=== PATIENT | female | born 1970 | race Hispanic/Latino ===

== ENCOUNTER 2017-02-21 18:17 | Emergency (ER) | payer OTHER ==
[~2017-02-21] VITALS: Ht 162.6 cm; Wt 68.2 kg
[2017-02-21 18:23] VITALS: BP 154/71; PULSE 90; O2SAT 100
[2017-02-21 18:30] VITALS: BP 154/71; PULSE 90; RESP 16; O2SAT 100
--- NOTE | 2017-02-21 21:23 | ED.REPORT ---
HPI-General Illness Date of Service Feb 21, 2017 ED Provider: Home Moya MD Pt is a 46 year old American speaking female who presents to the with complaints of rectal pain that started 3 days ago. She reports that she can feel lumps around her rectum, she has never had this occur in the past. She denies any trauma or injuries. She denies any fevers, nausea, vomiting, shortness of breath or cough. She admits to hot sweats secondary to menopause. Pt reports that she has not taken any thing for the pain. She denies any constipation. Nursing Notes Stated Complaint: BACK PAIN Chief Complaint: General Complaint Nursing Notes Reviewed: Yes (Swipesense, medications not reconciled) Allergies: Coded Allergies: No Known Allergies (Verified , 02/21/07) Scheduled PRN Docusate Sodium (Colace) 100 Mg Capsule 200 MG PO DAILY PRN PRN For Constipation Phenyleph/Mineral Oil/Petrolat (Preparation H Oint) 28 Gm Oint.appl 1 APPLIC RECTAL BID PRN PRN hemorrhoid Phenylephrine/[place] Butter (Preparation H Supp) 1 Each Supp.rect 1 SUPP RECTAL DAILY PRN PRN hemorrhoid General Time Seen by MD: 20:51 Chief Complaint Other (Rectal pain) Hx Obtained From: Patient, Supervisor [employer] Arrived By: Walk-in Sudden in Onset?: Yes Onset Occurred: 4 days ago Severity: Current: Moderate Severity: Maximum: Moderate Similar Sx Previous: Yes Past Medical History Past Medical History Healthy Ambulatory Status Independent Review of Systems Full Review of Systems Constitutional: Denies: Chills, Fever, Malaise, Weakness - generalized Cardiovascular: Denies: Chest pain, Syncope GI: Denies: Abdominal pain, Diarrhea, Nausea, Vomiting Musculoskeletal: Denies: Back pain, Neck pain Skin: Denies Diaphoresis Neurologic: Denies: Change LOC, Dizziness, Headache Complete sys rev & neg: except as marked. Physical Exam Vital Signs Vital Signs Date Time Temp Pulse Resp B/P Pulse Ox O2 Delivery O2 Flow Rate FiO2 02/21/17 21:32 36.1 85 20 151/72 99 Room Air 02/21/17 18:30 36.4 90 16 154/71 100 Room Air Initial VS: Reviewed, Vital signs normal General/Constitutional: Well-developed, Well-nourished Head / Eyes: Atraumatic, Normocephalic, PERRL ENT: Mucous membranes moist, Conjunctiva normal, No scleral icterus Neck: Supple, Non-tender, Full range of motion Respiratory: Breath sounds normal, Clear to auscultation, No respiratory distress Cardiovascular: Regular rate & rhythm, Heart sounds normal, Intact distal pulses Abdomen / GI: Soft, Non-tender, No guarding, No rebound, No distention Skin: Warm, Dry, No cyanosis Neurologic: Alert, Oriented, Nonfocal Rectum / Perineum Abnl: Positive: Hemorrhoid external Small, non thrombosed herorrhoid No perirectal abscess Re-Eval/Medical Decision Source of Hx: Old records Time of Eval: 21:27 Re-Evaluation/Progress Note: Pt is rechecked and informed of her diagnosis and the plan to discharge her at this time. She understands and agrees, all questions are addressed. Counseled Regarding: Diagnosis, Lab results, When/why to return to ED Discharge & Departure Primary Impression: Acute hemorrhoid Disposition: Home Discharge Condition All VS Reviewed: Yes Condition: Stable Additional Instructions: 1. Your exam indicates that he will have a hemorrhoid causing her discomfort. 2. Use a preparation H suppository once a day for the next several days to help resolve. You can also use preparation ointment to help with pain and discomfort. 3. take the stool softener colace 100-200mg daily to prevent constipation. 4. If needed for pain take hydrocodone/APAP 5/325 1 tab up to every 6 hours. Note this medication contains narcotic and cause some drowsiness. No driving for at least 4-6 hours after taking 5. Follow up with [facility] as needed. 1. Dong examen indica que tendr maryam hemorroide causando dong malestar. 2. Use un supositorio de preparacin H maryam vez al da dom los prximos penn para ayudar a resolver. Jose G puede utilizar un ungento de preparacin para ayudar con el dolor y la incomodidad. 3. tome el colatid 100-200mg del suavizador de las heces diariamente para prevenir el estreimiento. 4. Si es necesario para el dolor tome hydrocodone / APAP 5/325 1 lengeta hasta cada 6 horas. Tenga en cuenta que zack medicamento contiene estupefacientes y causar cierta somnolencia. No conducir por lo menos 4-6 horas despus de jayme 5. Seguir con [facility] segn sea necesario. Referrals: [facility] (PCP) Scribe Attestation Portions of this note were transcribed by Alejandra Maldonado.. I, Dr. Moya personally performed the history, physical exam and medical decision-making; I reviewed and confirmed the accuracy of the information in the transcribed note. Signed by:Alin Buckley, 02/21/2017 21:28 copies to: [facility] Matthew F MD Feb 21, 2017 21:23 CIARAN MALDONADO Feb 21, 2017 21:26
[2017-02-21] MEDS ORDERED: _HYDROcodone/APAP 5-325 mg Tablet PO PRN (21:25)
[2017-02-21 21:32] VITALS: BP 151/72; PULSE 85; RESP 20; O2SAT 99
[2017-02-21] MEDS ORDERED: PHEN28OI6 RECTAL (21:56)
[2017-02-21] MEDS ORDERED: PHEN1SUP94 RECTAL (21:56)
[2017-02-21] MEDS ORDERED: DOCU-41 PO (21:56)
== END 2017-02-21 22:21 | disposition home or self-care (01) ==
LOC: SED 18:17
DX: K64.4 Residual hemorrhoidal skin tags (principal)